=== PATIENT | female | born 1990 | race Caucasian/White ===

== ENCOUNTER 2018-06-20 12:03 | Emergency (ER) | payer OTHER ==
[2018-06-20 12:18] VITALS: BP 115/60; PULSE 60; TEMP 98.5; BMI 27.9
--- NOTE | 2018-06-21 10:13 | EKG ---
Test Reason : Blood Pressure : / mmHG Vent. Rate : 100 BPM Atrial Rate : 100 BPM P-R Int : 112 ms QRS Dur : 074 ms QT Int : 332 ms P-R-T Axes : 071 049 046 degrees QTc Int : 428 ms POOR DATA QUALITY, INTERPRETATION MAY BE ADVERSELY AFFECTED NORMAL SINUS RHYTHM NORMAL ECG NO PREVIOUS ECGS AVAILABLE Confirmed by PAUL SHEA MD ([id number]) on 06/21/2018 10:12:28 AM Referred By: Confirmed By:PAUL SHEA MD
== END 2018-06-20 14:00 | disposition left against medical advice (07) ==
LOC: JERFT 12:03
DX: Z53.21 Procedure and treatment not carried out due to patient leaving prior to being seen by health care provider (principal)
CPT/HCPCS: 93005; 93010; 99281-25